=== PATIENT | female | born 1965 | race Caucasian/White ===

== ENCOUNTER 2018-01-27 07:23 | Emergency (ER) | payer BC, OTHER ==
[2018-01-27] MEDS ORDERED: Sodium Chloride 0.9% 1000 ML 1,000 ML ONE ×2 (07:43→09:14)
[2018-01-27] MEDS ORDERED: Zofran 4 MG/2 ML VIAL ONE (07:43)
[2018-01-27] MEDS ORDERED: Sodium Chloride 0.9% 1000 ML 1,000 ML IV STA ×2 (07:43→09:14)
[2018-01-27] MEDS ORDERED: Zofran 4 MG/2 ML VIAL IV ONE (07:43)
--- NOTE | 2018-01-27 07:48 | ERPHSYRPT ---
- History of Present Illness Time Seen by Provider: 01/27/18 07:42 Source: patient Exam Limitations: no limitations Patient Subjective Stated Complaint: PT states "It all started as a migraine yesterday and I have been vomiting all night and it will not stop." Triage Nursing Assessment: Pt alert and oriented X 3, skin pwd. PT ambulates with an upright steady gait, able to speak in clear full sentences. Pt in no apparent respiratory distress. Pt vomiting into emisis bag. Physician History: The patient is an obese 52-year-old female with her complaining of the worst headache of her life that began yesterday evening around 10 PM and was followed by vomiting that has lasted all night she's had some diarrhea with it. She denies abdominal pain. In addition to her headache, it hurts for her to take a breath. She describes the headache as pulsating and in the back of her head and behind her eyes. She has no past medical history of migraine headaches. Her past medical history is significant for eye pretension. Timing/Duration: yesterday, sudden, worse Severity: severe Modifying Factors: Improves With: nothing Associated Symptoms: nausea, vomiting, headaches, No abdominal pain Allergies/Adverse Reactions: morphine Allergy (Mild, Verified 04/17/14 10:25) Home Medications: Citalopram Hydrobromide [Celexa] 20 mg PO DAILY 09/12/12 [History] Lisinopril 5 mg [Zestril 5 MG] 5 mg PO DAILY 09/12/12 [History] Ferrous Sulfate [Iron Supplement] 325 mg PO DAILY 04/17/14 [History] Spironolactone 25 mg DAILY 04/17/14 [History] Hx Tetanus, Diphtheria Vaccination/Date Given: No Hx Influenza Vaccination/Date Given: No Hx Pneumococcal Vaccination/Date Given: No Immunizations Up to Date: Yes - Review of Systems Constitutional: Weakness Eyes: No Symptoms Ears, Nose, & Throat: No Symptoms Respiratory: No Cough, No Dyspnea Cardiac: Chest Pain (pain with breathing) Abdominal/Gastrointestinal: Nausea, Vomiting, Diarrhea Genitourinary Symptoms: No Dysuria Musculoskeletal: No Back Pain, No Neck Pain Skin: No Rash Neurological: Headache, No Parasthesia, No Sensory Changes Psychological: No Symptoms Endocrine: No Symptoms Hematologic/Lymphatic: No Symptoms Immunological/Allergic: No Symptoms All Other Systems: Reviewed and Negative - Past Medical History Pertinent Past Medical History: Yes Neurological History: No Pertinent History ENT History: No Pertinent History Cardiac History: Hypertension Respiratory History: Asthma, Bronchitis Endocrine Medical History: No Pertinent History Musculoskeletal History: No Pertinent History GI Medical History: No Pertinent History Psycho-Social History: Anxiety, Depression Female Reproductive Disorders: No Pertinent History Other Medical History: fsgs kidney disease - Past Surgical History Past Surgical History: Yes Gastrointestinal: Cholecystectomy Other Surgical History: KIDNEY BX. VAGINA CYST - Social History Smoking Status: Current some day smoker How long have you smoked: years Exposure to second hand smoke: Yes Drug Use: none Patient Lives Alone: No - Female History Hx Last Menstrual Period: 01/23/2018 Hx Now: No - Nursing Vital Signs Nursing Vital Signs: Initial Vital Signs Temperature 98.5 F 01/27/18 07:34 Pulse Rate 70 01/27/18 07:34 Respiratory Rate 18 01/27/18 07:34 Blood Pressure 156/85 01/27/18 07:34 O2 Sat by Pulse Oximetry 97 01/27/18 07:34 Pain Scale Pain Intensity 4 - Physical Exam General Appearance: moderate distress, obese Eye Exam: PERRL/EOMI, eyes nml inspection Ears, Nose, Throat Exam: normal ENT inspection, TMs normal, pharynx normal, moist mucous membranes Neck Exam: normal inspection, non-tender, supple, full range of motion Respiratory Exam: normal breath sounds, lungs clear, No respiratory distress Cardiovascular Exam: regular rate/rhythm, normal heart sounds, normal peripheral pulses Gastrointestinal/Abdomen Exam: soft, normal bowel sounds, No tenderness, No mass Pelvic Exam: not done Rectal Exam: not done Back Exam: normal inspection, normal range of motion, No CVA tenderness, No vertebral tenderness Extremity Exam: normal inspection, normal range of motion, pelvis stable Neurologic Exam: alert, oriented x 3, cooperative, normal mood/affect, nml cerebellar function, nml station & gait, sensation nml, No motor deficits Skin Exam: normal color, warm, dry, No rash Lymphatic Exam: No adenopathy SpO2 Interpretation: normal SpO2: 97 Oxygen Delivery: Room Air - Course EKG Interpreted by Me: RATE, Sinus Rhythm, NORMAL AXIS, NORMAL INTERVALS, NORMAL QRS, NORMAL ST-T - Radiology Exams Chest X-ray Interpretation: Interpreted by me, Negative (1V chest) Abdomen X-ray Interpretation: Interpreted by me, Negative - CT Exams Head CT Interpretation: Negative, Tele-radiologist Report (per Dr Pascal), No/ Intracranial Hemorrhag Ordered Tests: Active Orders 24 hr Category Date Time Status Clean Catch Urine Specimen STAT Care 01/27/18 07:43 Active EKG-ER Only STAT Care 01/27/18 07:52 Active IV Insertion STAT Care 01/27/18 07:43 Active HEAD WITHOUT CONTRAST [CT] Stat Exams 01/27/18 07:55 Taken OBSTR/ACUTE ABDOMEN SERIES Stat Exams 01/27/18 07:52 Taken CBC W DIFF Stat Lab 01/27/18 07:45 Completed CMP Stat Lab 01/27/18 07:45 Completed CULTURE,URINE Stat Lab 01/27/18 10:20 Received HCG QUALITATIVE,SERUM Stat Lab 01/27/18 07:45 Completed LIPASE Stat Lab 01/27/18 07:45 Completed Lactic Acid Stat Lab 01/27/18 07:43 Completed TROPONIN Q3H Lab 01/27/18 07:45 Completed TROPONIN Q3H Lab 01/27/18 11:00 Ordered TROPONIN Q3H Lab 01/27/18 14:00 Ordered TROPONIN Q3H Lab 01/27/18 17:00 Ordered TROPONIN Q3H Lab 01/27/18 20:00 Ordered UA W/RFX UR CULTURE Stat Lab 01/27/18 10:20 Completed Urine Triage Profile Stat Lab 01/27/18 10:20 Received Medication Summary Discontinued Medications Generic Name Dose Route Start Last Admin Trade Name Freq PRN Reason Stop Dose Admin Sodium Chloride 1,000 mls @ 999 mls/hr 01/27/18 07:43 01/27/18 09:22 Sodium Chloride 0.9% 1000 Ml IV 01/27/18 08:43 Infused .Q1H1M STA Infusion Sodium Chloride Confirm 01/27/18 07:43 Sodium Chloride 0.9% 1000 Ml Administered 01/27/18 07:44 Dose 1,000 mls @ ud .ROUTE .STK-MED ONE Sodium Chloride 1,000 mls @ 999 mls/hr 01/27/18 09:14 01/27/18 10:24 Sodium Chloride 0.9% 1000 Ml IV 01/27/18 10:14 Infused .Q1H1M STA Infusion Sodium Chloride Confirm 01/27/18 09:14 Sodium Chloride 0.9% 1000 Ml Administered 01/27/18 09:15 Dose 1,000 mls @ ud .ROUTE .STK-MED ONE Ondansetron HCl 4 mg 01/27/18 07:43 01/27/18 07:58 Zofran 4 Mg/2 Ml Vial IV 01/27/18 07:44 4 mg STAT ONE Administration Ondansetron HCl Confirm 01/27/18 07:43 Zofran 4 Mg/2 Ml Vial Administered 01/27/18 07:44 Dose 4 mg .ROUTE .STK-MED ONE Promethazine HCl 25 mg 01/27/18 07:52 01/27/18 08:00 Phenergan 25 Mg Inj IV 01/27/18 07:53 25 mg STAT ONE Administration Promethazine HCl Confirm 01/27/18 07:59 Phenergan 25 Mg Inj Administered 01/27/18 08:00 Dose 25 mg .ROUTE .ST-[facility] ONE Lab/Rad Data: Laboratory Result Diagrams 01/27/18 07:45 01/27/18 07:45 Laboratory Results 01/27/18 01/27/18 01/27/18 Range/Units 10:20 07:45 07:45 WBC (4.0-10.5) K/mm3 RBC (4.1-5.4) M/mm3 Hgb (12.0-16.0) gm/dl Hct (35-47) % MCV (78-100) fl MCH (26-32) pg MCHC (32-36) g/dl RDW (11.5-14.0) % Plt Count (150-450) K/mm3 MPV (6-9.5) fl Gran % (36.0-66.0) % Eos # (Auto) (0-0.5) Absolute Lymphs (auto) (1.0-4.6) Absolute Monos (auto) (0.0-1.3) Lymphocytes % (24.0-44.0) % Monocytes % (0.0-12.0) % Eosinophils % (0.00-5.0) % Basophils % (0.0-0.4) % Absolute Granulocytes (1.4-6.9) Basophils # (0-0.4) Sodium (137-145) mmol/L Potassium (3.5-5.1) mmol/L Chloride (98-107) mmol/L Carbon Dioxide (22-30) mmol/L Anion Gap (5-15) MEQ/L BUN (7-17) mg/dL Creatinine (0.52-1.04) mg/dL Estimated GFR ML/MIN Glucose (74-106) mg/dL Lactic Acid (0.4-2.0) Calcium (8.4-10.2) mg/dL Total Bilirubin (0.2-1.3) mg/dL AST (14-36) U/L ALT (0-35) U/L Alkaline Phosphatase (38-126) U/L Troponin I < 0.012 (0.000-0.034) ng/mL Serum Total Protein (6.3-8.2) g/dL Albumin (3.5-5.0) g/dL Lipase (23-300) U/L Serum , Qual NEGATIVE (Negative) Urine Color STRAW (YELLOW) Urine Appearance CLEAR (CLEAR) Urine pH 7.0 (5-6) Ur Specific [place] 1.010 (1.005-1.025) Urine Protein 100 (Negative) Urine Ketones NEGATIVE (NEGATIVE) Urine Blood SMALL (0-5) [place]/ul Urine Nitrite NEGATIVE (NEGATIVE) Urine Bilirubin NEGATIVE (NEGATIVE) Urine Urobilinogen NEGATIVE (0-1) mg/dL Ur Leukocyte Esterase NEGATIVE (NEGATIVE) Urine WBC (Auto) 3-5 (0-5) /HPF Urine RBC (Auto) 0-2 (0-2) /HPF U Epithel Cells (Auto) NONE (FEW) /HPF Urine Bacteria (Auto) RARE (NEGATIVE) /HPF Urine Mucus (Auto) SLIGHT (NEGATIVE) /HPF Urine Culture Reflexed YES (NO) Urine Glucose NEGATIVE (NEGATIVE) mg/dL 01/27/18 01/27/18 01/27/18 Range/Units 07:45 07:45 07:43 WBC 7.6 (4.0-10.5) K/mm3 RBC 3.97 L (4.1-5.4) M/mm3 Hgb 12.0 (12.0-16.0) gm/dl Hct 37.1 (35-47) % MCV 93.5 (78-100) fl MCH 30.2 (26-32) pg MCHC 32.3 (32-36) g/dl RDW 13.9 (11.5-14.0) % Plt Count 188 (150-450) K/mm3 MPV 11.6 H (6-9.5) fl Gran % 76.5 H (36.0-66.0) % Eos # (Auto) 0.11 (0-0.5) Absolute Lymphs (auto) 1.14 (1.0-4.6) Absolute Monos (auto) 0.48 (0.0-1.3) Lymphocytes % 15.0 L (24.0-44.0) % Monocytes % 6.3 (0.0-12.0) % Eosinophils % 1.5 (0.00-5.0) % Basophils % 0.7 (0.0-0.4) % Absolute Granulocytes 5.80 (1.4-6.9) Basophils # 0.05 (0-0.4) Sodium 140 (137-145) mmol/L Potassium 4.9 (3.5-5.1) mmol/L Chloride 104 (98-107) mmol/L Carbon Dioxide 28 (22-30) mmol/L Anion Gap 12.3 (5-15) MEQ/L BUN 30 H (7-17) mg/dL Creatinine 1.38 H (0.52-1.04) mg/dL Estimated GFR 42.5 ML/MIN Glucose 118 H (74-106) mg/dL Lactic Acid 1.2 (0.4-2.0) Calcium 10.1 (8.4-10.2) mg/dL Total Bilirubin 0.20 (0.2-1.3) mg/dL AST 26 (14-36) U/L ALT 14 (0-35) U/L Alkaline Phosphatase 71 (38-126) U/L Troponin I (0.000-0.034) ng/mL Serum Total Protein 7.5 (6.3-8.2) g/dL Albumin 4.3 (3.5-5.0) g/dL Lipase 313 H (23-300) U/L Serum , Qual (Negative) Urine Color (YELLOW) Urine Appearance (CLEAR) Urine pH (5-6) Ur Specific [place] (1.005-1.025) Urine Protein (Negative) Urine Ketones (NEGATIVE) Urine Blood (0-5) [place]/ul Urine Nitrite (NEGATIVE) Urine Bilirubin (NEGATIVE) Urine Urobilinogen (0-1) mg/dL Ur Leukocyte Esterase (NEGATIVE) Urine WBC (Auto) (0-5) /HPF Urine RBC (Auto) (0-2) /HPF U Epithel Cells (Auto) (FEW) /HPF Urine Bacteria (Auto) (NEGATIVE) /HPF Urine Mucus (Auto) (NEGATIVE) /HPF Urine Culture Reflexed (NO) Urine Glucose (NEGATIVE) mg/dL - Progress Progress: improved Progress Note: 01/27/18 11:05 given zofran 4 mg, phenergan 25 mg, and 2L fluids IV. Counseled pt/family regarding: lab results, diagnosis, rad results - Departure Time of Disposition: 11:06 Departure Disposition: Home Clinical Impression: Vomiting, Headache Condition: Stable Critical Care Time: No Referrals: GUILLERMO MENDOZA [Primary Care Provider] - Additional Instructions: You had severe vomiting and a headache. The head CT, chest x-ray, and abdominal x-ray were all negative. You were given Zofran 4 mg and Phenergan 25 mg by IV for nausea and vomiting. You were given 2 L of fluids by IV. Take Zofran 4 mg ODT every 6 hours as needed. Take Phenergan 25 mg by suppository every 8 hours as needed. Begin your diet with a full liquid diet and advance as tolerated. Follow-up with your primary medical doctor as needed. Prescriptions: Ondansetron ODT 4 MG [Zofran Odt 4 mg] 1 tab PO Q6H PRN PRN #10 tab.rapdis PRN Reason: Nausea/Vomiting Promethazine HCl 25 mg Supp [Phenergan 25 mg Supp] 25 mg CO Q8H PRN PRN # 12 supp.rect PRN Reason: Nausea/Vomiting
[2018-01-27] MEDS ORDERED: Phenergan 25 MG INJ IV ONE (07:52)
[2018-01-27] MEDS ORDERED: Phenergan 25 MG INJ ONE (07:59)
[2018-01-27 08:13] LABS: BASOPHIL % 0.7 % (0.0-0.4); Basophil (Absolute #) 0.05 (0-0.4); Eosinophil % 1.5 % (0.00-5.0); Eosinophil (Absolute #) 0.11 (0-0.5); Granulocytes % 76.5 % (36.0-66.0); Hematocrit 37.1 % (35-47); Lymphocyte (Absolute #) 1.14 (1.0-4.6); Mean Cell Volume 93.5 fl (78-100); Mean Corpuscular Hemoglobin 30.2 pg (26-32); Mean Corpuscular Hgb Concent. 32.3 g/dl (32-36); Mean Platelet Volume 11.6 fl (6-9.5); Monocyte (Absolute #) 0.48 (0.0-1.3); Monocytes % 6.3 % (0.0-12.0); Platelet Count 188 K/mm3 (150-450); Red Blood Count 3.97 M/mm3 (4.1-5.4); Red Cell Distribution Width 13.9 % (11.5-14.0); White Blood Count 7.6 K/mm3 (4.0-10.5)
[2018-01-27 08:28] LABS: ALBUMIN 4.3 g/dL (3.5-5.0); ANION GAP 12.3 MEQ/L (5-15); BILIRUBIN,TOTAL 0.2 mg/dL (0.2-1.3); Calcium 10.1 mg/dL (8.4-10.2); Creatinine 1 1.38 mg/dL (0.52-1.04); Potassium 4.9 mmol/L (3.5-5.1); Total Protein 7.5 g/dL (6.3-8.2)
[2018-01-27 10:41] LABS: Appearance CLEAR (CLEAR); Bilirubin NEGATIVE (NEGATIVE); Blood SMALL Ery/ul (0-5); Glucose NEGATIVE (NEGATIVE); Ketones NEGATIVE (NEGATIVE); Leukocyte Esterase NEGATIVE (NEGATIVE); Nitrite NEGATIVE (NEGATIVE); Protein,Urine Dip 100 (Negative); Urobilinogen NEGATIVE mg/dL (0-1)
[2018-01-27 10:54] LABS: Amphetamine,Urine NEGATIVE (NEGATIVE); Barbiturate,Urine NEGATIVE (NEGATIVE); Benzodiazepine,Urine NEGATIVE (NEGATIVE); Cocaine,Urine NEGATIVE (NEGATIVE); Methadone,Urine NEGATIVE (NEGATIVE); Opiate,Urine NEGATIVE (NEGATIVE); PCP,Urine NEGATIVE (NEGATIVE); THC,Urine NEGATIVE (NEGATIVE)
[2018-01-27 11:14] VITALS: BP 112/64; PULSE 70; O2SAT 98
--- NOTE | 2018-01-27 15:24 | XRAY ---
Indication: Headache, nausea, and vomiting. Comparison: None 2 views of the abdomen demonstrates nonspecific nonobstructed bowel gas pattern with cholecystectomy clips. Solid organs unremarkable. Osseous structures intact with mild lower lumbar degenerative changes. Single PA chest demonstrates normal heart, lungs, and bony thorax with incidental right base calcified granuloma. Impression: Negative abdomen. Nonacute 1 view chest with evidence for old granulomatous disease.
--- NOTE | 2018-01-27 15:29 | XRAY ---
Indication: Headache, nausea, and vomiting. Multiple contiguous axial images obtained through the head without contrast. Comparison: None Images through the base the brain slightly degraded by motion artifact. No acute intracranial hemorrhage, abnormal extra-axial fluid collection, or mass effect. Fourth ventricle is midline without hydrocephalus. Nash-white matter differentiation preserved. Bony calvarium intact. There is complete opacification of both mastoid air cells and partial opacification of the right middle ear presumed inflammatory. Impression: Motion artifact. No gross acute intracranial abnormalities. Opacification of both mastoid air cells and right middle ear presumed inflammatory. Comment: Preliminary interpretation was made by [facility] who does not report right middle ear and mastoid air cell opacifications, not critical findings. CTDI 66.59
== END 2018-01-27 11:26 | disposition home or self-care (01) ==
LOC: ED 07:23
DX: R51 Headache (principal); R11.2 Nausea with vomiting, unspecified; Z79.899 Other long term (current) drug therapy
CPT/HCPCS: 36000; 36415; 70450; 74022; 80053; 80307; 81001; 81025; 83605; 83690; 84484; 85025; 87077; 87086; 87186; 93005; 96360; 96361; 96365; 96374; 96375; 99285; J2405; J2550

== ENCOUNTER 2018-12-20 19:31 | Emergency (ER) | payer OTHER ==
--- NOTE | 2018-12-20 20:01 | ERPHSYRPT ---
- History of Present Illness Time Seen by Provider: 12/20/18 19:45 Historian: patient, family Exam Limitations: no limitations Patient Subjective Stated Complaint: " I feel like my abd is tearing from left side, my stomach feels like I have a knot in it, my gut is distended and I have been constipated. This is been going on for about a month but worse in the past week." Triage Nursing Assessment: Pt presents to ER, anxious and appears in pain, pt walks unsteady to Room 5 where pt was placed in gown and on bed. Pt states pain is diffused mid and lower abd. states worse when laying flat. Bowel sounds are present. Lung sounds have wheezes during exhalation, pt states that is normal since she is a smoker. Pt doesn't appear short of breath. Pt denies n/v/d, states is constipated though. Pt is alert and oriented x 3, communicates in clear full sentences. Physician History: 53 y/o obese white female presents with abdominal pain and constipation for a month. sx worse. pt has a colonoscopy scheduled for december 28. pt has intermittent nausea but no vomiting or diarrhea. pt denies cp, denies soa. pt has never had this before. Timing/Duration: week(s) (several ), intermittent, worse Activities at Onset: none Quality: cramping Abdominal Pain Onset Location: LUQ, LLQ, suprapubic Pain Radiation: no radiation Severity of Pain-Max: moderate Severity of Pain-Current: moderate Modifying Factors: Improves With: nothing Associated Symptoms: other (constipation) Previous symptoms: no prior history Allergies/Adverse Reactions: morphine Allergy (Mild, Verified 04/17/14 10:25) Hx Tetanus, Diphtheria Vaccination/Date Given: No Hx Influenza Vaccination/Date Given: No Hx Pneumococcal Vaccination/Date Given: No Immunizations Up to Date: Yes - Review of Systems Constitutional: No Symptoms Eyes: No Symptoms Ears, Nose, & Throat: No Symptoms Respiratory: No Symptoms Cardiac: No Symptoms Abdominal/Gastrointestinal: Abdominal Pain, Nausea, Vomiting, Constipation Genitourinary Symptoms: No Symptoms Musculoskeletal: No Symptoms Skin: No Symptoms Neurological: No Symptoms Psychological: No Symptoms Endocrine: No Symptoms Hematologic/Lymphatic: No Symptoms Immunological/Allergic: No Symptoms All Other Systems: Reviewed and Negative - Past Medical History Pertinent Past Medical History: Yes Neurological History: No Pertinent History ENT History: No Pertinent History Cardiac History: Hypertension Respiratory History: Asthma, Bronchitis Endocrine Medical History: No Pertinent History Musculoskeletal History: No Pertinent History GI Medical History: No Pertinent History Psycho-Social History: Anxiety, Depression Female Reproductive Disorders: No Pertinent History Other Medical History: fsgs kidney disease - Past Surgical History Past Surgical History: Yes Gastrointestinal: Cholecystectomy Other Surgical History: KIDNEY BX. VAGINA CYST - Social History Smoking Status: Current every day smoker How long have you smoked: years Exposure to second hand smoke: No Drug Use: none Patient Lives Alone: No - Female History Hx Last Menstrual Period: 1 year ago, spotting 2 days ago - Nursing Vital Signs Nursing Vital Signs: Initial Vital Signs Temperature 98.2 F 12/20/18 19:42 Pulse Rate 98 H 12/20/18 19:42 Respiratory Rate 22 12/20/18 19:42 Blood Pressure 166/100 12/20/18 19:42 O2 Sat by Pulse Oximetry 98 12/20/18 19:42 Pain Scale Pain Intensity 7 - Physical Exam General Appearance: mild distress, alert, anxiety Eye Exam: PERRL/EOMI, eyes nml inspection Ears, Nose, Throat Exam: normal ENT inspection, moist mucous membranes Neck Exam: normal inspection, non-tender, supple, full range of motion Respiratory Exam: normal breath sounds, lungs clear, airway intact, No chest tenderness, No respiratory distress Cardiovascular Exam: regular rate/rhythm, normal heart sounds, normal peripheral pulses Gastrointestinal/Abdomen Exam: soft, normal bowel sounds, tenderness (mild diffuse), No guarding, No rebound Pelvic Exam: not done Rectal Exam: not done Back Exam: normal inspection, normal range of motion, No CVA tenderness, No vertebral tenderness Extremity Exam: normal inspection, normal range of motion, pelvis stable Neurologic Exam: alert, oriented x 3, cooperative, sawmill hand II-XII nml as tested, nml cerebellar function, nml station & gait Skin Exam: normal color, warm, dry Lymphatic Exam: No adenopathy SpO2 Interpretation: normal SpO2: 98 O2 Delivery: Room Air - Course Nursing assessment & vital signs reviewed: Yes Ordered Tests: Active Orders 24 hr Category Date Time Status IV Insertion STAT Care 12/20/18 20:01 Active ABDOMEN AND PELVIS W/0 CONTRAS [CT] Stat Exams 12/20/18 20:01 Taken AMYLASE Stat Lab 12/20/18 20:10 Completed CBC W DIFF Stat Lab 12/20/18 20:10 Completed CMP Stat Lab 12/20/18 20:10 Completed LIPASE Stat Lab 12/20/18 20:10 Completed Lactic Acid Stat Lab 12/20/18 21:10 Completed UA W/RFX UR CULTURE Stat Lab 12/20/18 20:14 Completed Lab/Rad Data: Laboratory Result Diagrams 12/20/18 20:10 12/20/18 20:10 Laboratory Results 12/20/18 12/20/18 12/20/18 Range/Units 21:10 20:14 20:10 WBC (4.0-10.5) K/mm3 RBC (4.1-5.4) M/mm3 Hgb (12.0-16.0) gm/dl Hct (35-47) % MCV (78-100) fl MCH (26-32) pg MCHC (32-36) g/dl RDW (11.5-14.0) % Plt Count (150-450) K/mm3 MPV (6-9.5) fl Gran % (36.0-66.0) % Eos # (Auto) (0-0.5) Absolute Lymphs (auto) (1.0-4.6) Absolute Monos (auto) (0.0-1.3) Lymphocytes % (24.0-44.0) % Monocytes % (0.0-12.0) % Eosinophils % (0.00-5.0) % Basophils % (0.0-0.4) % Absolute Granulocytes (1.4-6.9) Basophils # (0-0.4) Sodium 143 (137-145) mmol/L Potassium 3.8 (3.5-5.1) mmol/L Chloride 106 (98-107) mmol/L Carbon Dioxide 27 (22-30) mmol/L Anion Gap 14.3 (5-15) MEQ/L BUN 27 H (7-17) mg/dL Creatinine 1.63 H (0.52-1.04) mg/dL Estimated GFR 34.9 ML/MIN Glucose 102 (74-106) mg/dL Lactic Acid 1.0 (0.4-2.0) Calcium 9.4 (8.4-10.2) mg/dL Total Bilirubin 0.20 (0.2-1.3) mg/dL AST 22 (14-36) U/L ALT 11 (0-35) U/L Alkaline Phosphatase 100 (38-126) U/L Serum Total Protein 7.8 (6.3-8.2) g/dL Albumin 3.9 (3.5-5.0) g/dL Amylase 96 (30-110) U/L Lipase 117 (23-300) U/L Urine Color YELLOW (YELLOW) Urine Appearance CLEAR (CLEAR) Urine pH 6.0 (5-6) Ur Specific [place] 1.009 (1.005-1.025) Urine Protein 100 (Negative) Urine Ketones NEGATIVE (NEGATIVE) Urine Blood MODERATE (0-5) [place]/ul Urine Nitrite NEGATIVE (NEGATIVE) Urine Bilirubin NEGATIVE (NEGATIVE) Urine Urobilinogen NEGATIVE (0-1) mg/dL Ur Leukocyte Esterase NEGATIVE (NEGATIVE) Urine WBC (Auto) 3-5 (0-5) /HPF Urine RBC (Auto) 3-5 (0-2) /HPF U Epithel Cells (Auto) RARE (FEW) /HPF Urine Bacteria (Auto) NONE (NEGATIVE) /HPF Urine Mucus (Auto) SLIGHT (NEGATIVE) /HPF Urine Culture Reflexed NO (NO) Urine Glucose NEGATIVE (NEGATIVE) mg/dL 12/20/18 Range/Units 20:10 WBC 8.8 (4.0-10.5) K/mm3 RBC 3.87 L (4.1-5.4) M/mm3 Hgb 11.6 L (12.0-16.0) gm/dl Hct 35.3 (35-47) % MCV 91.2 (78-100) fl MCH 29.9 (26-32) pg MCHC 32.9 (32-36) g/dl RDW 13.6 (11.5-14.0) % Plt Count 286 (150-450) K/mm3 MPV 10.7 H (6-9.5) fl Gran % 70.7 H (36.0-66.0) % Eos # (Auto) 0.21 (0-0.5) Absolute Lymphs (auto) 1.64 (1.0-4.6) Absolute Monos (auto) 0.67 (0.0-1.3) Lymphocytes % 18.6 L (24.0-44.0) % Monocytes % 7.6 (0.0-12.0) % Eosinophils % 2.4 (0.00-5.0) % Basophils % 0.7 (0.0-0.4) % Absolute Granulocytes 6.23 (1.4-6.9) Basophils # 0.06 (0-0.4) Sodium (137-145) mmol/L Potassium (3.5-5.1) mmol/L Chloride (98-107) mmol/L Carbon Dioxide (22-30) mmol/L Anion Gap (5-15) MEQ/L BUN (7-17) mg/dL Creatinine (0.52-1.04) mg/dL Estimated GFR ML/MIN Glucose (74-106) mg/dL Lactic Acid (0.4-2.0) Calcium (8.4-10.2) mg/dL Total Bilirubin (0.2-1.3) mg/dL AST (14-36) U/L ALT (0-35) U/L Alkaline Phosphatase (38-126) U/L Serum Total Protein (6.3-8.2) g/dL Albumin (3.5-5.0) g/dL Amylase (30-110) U/L Lipase (23-300) U/L Urine Color (YELLOW) Urine Appearance (CLEAR) Urine pH (5-6) Ur Specific [place] (1.005-1.025) Urine Protein (Negative) Urine Ketones (NEGATIVE) Urine Blood (0-5) [place]/ul Urine Nitrite (NEGATIVE) Urine Bilirubin (NEGATIVE) Urine Urobilinogen (0-1) mg/dL Ur Leukocyte Esterase (NEGATIVE) Urine WBC (Auto) (0-5) /HPF Urine RBC (Auto) (0-2) /HPF U Epithel Cells (Auto) (FEW) /HPF Urine Bacteria (Auto) (NEGATIVE) /HPF Urine Mucus (Auto) (NEGATIVE) /HPF Urine Culture Reflexed (NO) Urine Glucose (NEGATIVE) mg/dL - Progress Progress: unchanged Progress Note: 12/20/18 21:50 d/w pt the ct abd/pelvis-left adnexal mass, adenopathy vs ovarian tumor. retroperitoneal adenopathy. mesenteric "caking". pericardial fat soft tissue tumors. hepatic granulomas vs malignancy. small amt of pelvic free fluid. 12/20/18 21:55 pt states she does not require any pain medication at this time. Counseled pt/family regarding: lab results, diagnosis, need for follow-up, rad results - Departure Departure Disposition: Home Clinical Impression: Abdominal pain, Intraabdominal tumor, Intra-abdominal lymphadenopathy Condition: Stable Critical Care Time: No Referrals: GUILLERMO MENDOZA [Primary Care Provider] - Additional Instructions: follow up with Dr. Haney office tomorrow for further management.
[2018-12-20 20:18] LABS: Absolute Neutrophil Ct (ANC) 6.23 (1.4-6.9); BASOPHIL % 0.7 % (0.0-0.4); Basophil (Absolute #) 0.06 (0-0.4); Eosinophil % 2.4 % (0.00-5.0); Eosinophil (Absolute #) 0.21 (0-0.5); Hematocrit 35.3 % (35-47); Hemoglobin 11.6 gm/dl (12.0-16.0); Lymphocyte (Absolute #) 1.64 (1.0-4.6); Lymphocytes % 18.6 % (24.0-44.0); Mean Cell Volume 91.2 fl (78-100); Mean Corpuscular Hgb Concent. 32.9 g/dl (32-36); Mean Platelet Volume 10.7 fl (6-9.5); Monocyte (Absolute #) 0.67 (0.0-1.3); Monocytes % 7.6 % (0.0-12.0); Neutrophil % 70.7 % (36.0-66.0); Platelet Count 286 K/mm3 (150-450); Red Blood Count 3.87 M/mm3 (4.1-5.4); Red Cell Distribution Width 13.6 % (11.5-14.0); White Blood Count 8.8 K/mm3 (4.0-10.5)
[2018-12-20 20:19] LABS: Mean Corpuscular Hemoglobin 29.9 pg (26-32)
[2018-12-20 20:21] LABS: Appearance CLEAR (CLEAR); Bilirubin NEGATIVE (NEGATIVE); Blood MODERATE Ery/ul (0-5); Epithelial Cells RARE /HPF (FEW); Glucose NEGATIVE (NEGATIVE); Ketones NEGATIVE (NEGATIVE); Leukocyte Esterase NEGATIVE (NEGATIVE); Mucus SLIGHT /HPF (NEGATIVE); Nitrite NEGATIVE (NEGATIVE); Protein,Urine Dip 100 (Negative); Specific Gravity 1.009 (1.005-1.025); Urobilinogen NEGATIVE mg/dL (0-1)
[2018-12-20 20:31] LABS: ALBUMIN 3.9 g/dL (3.5-5.0); ANION GAP 14.3 MEQ/L (5-15); BILIRUBIN,TOTAL 0.2 mg/dL (0.2-1.3); Calcium 9.4 mg/dL (8.4-10.2); Creatinine 1 1.63 mg/dL (0.52-1.04); Potassium 3.8 mmol/L (3.5-5.1); Total Protein 7.8 g/dL (6.3-8.2)
[2018-12-20 22:06] VITALS: PULSE 81
[2018-12-20 22:51] VITALS: BP 128/78; O2SAT 97
--- NOTE | 2018-12-21 09:16 | XRAY ---
Indication: Abdomen pain and constipation. Multiple contiguous axial images obtained through the abdomen and pelvis without contrast as ordered. Comparison: None Lung bases demonstrates right lower lobe calcified granulomas. No infiltrate or effusion. Heart is not enlarged. Small hiatal hernia. Stomach is distended with food/fluid. Noncontrasted stomach and bowel loops appear nonobstructed. Normal air-filled appendix. Minimal scattered colonic diverticulosis. Left adnexa demonstrates a 3.7 x 5.7 cm noncalcified soft tissue mass either lymphadenopathy versus or ovarian mass. Abdomen and pelvis demonstrates scattered anterior omental caking with small pelvic free fluid worrisome for metastasis typically from ovarian, gastric, or colon cancer. The base of the lungs demonstrates similar smaller soft tissue opacities in the epicardiac fat pad bilaterally, largest 1.2 x 1.6 cm. There are also matted retroperitoneal lymphadenopathy, largest 3 x 4 cm just inferior to the left renal vessels. Both kidneys demonstrate cortical scarring with faint peripheral calcifications. Right mid kidney demonstrates a 2.2 cm round hypodensity, possible cyst. No hydronephrosis or hydroureter. Left lobe of the liver near the dome of the diaphragm demonstrates small 2.5 cm focus of clustered calcifications either calcified granuloma versus primary/metastatic malignancy. Previous cholecystectomy. Remaining pancreas, spleen, adrenal glands, kidneys, ureters, bladder, uterus, and aorta appear unremarkable for noncontrast exam. Osseous structures intact with mild degenerative changes of the lower thoracic spine. No suspicious bony lesions. Impression: 1. Left adnexa noncalcified soft tissue mass either lymphadenopathy versus ovarian mass. 2. Omental caking with small pelvic free fluid worrisome for metastasis. Similar soft tissue opacities around the epicardiac fat pad. 3. Retroperitoneal lymphadenopathy also favors metastasis. 4. Small focus of calcifications in the left lobe of the liver either calcified granulomas versus primary/metastatic malignancy. 5. Bilateral renal cortical scarring with faint calcifications. Right renal 2.2 cm round hypodensity probable cyst. 6. Incidental small hiatal hernia, pulmonary calcified granulomas, and colonic diverticulosis. CT DI 23.69
== END 2018-12-20 22:42 | disposition home or self-care (01) ==
LOC: ED 19:31
DX: R10.12 Left upper quadrant pain (principal); R10.32 Left lower quadrant pain; D49.89 Neoplasm of unspecified behavior of other specified sites; R59.1 Generalized enlarged lymph nodes
CPT/HCPCS: 36000; 36415; 74176; 80053; 81001; 82150; 83605; 83690; 85025; 99284

== ENCOUNTER → 2018-12-25 | Day surgery (SDC) | payer OTHER ==
[~2018-12-25] MED LIST: DIPRIVAN 200 MG/20 ML IV ONE; Ketamine HCl 50 MG/ML ONE; Lactated Ringers 1,000 ML IV SCH
[2018-12-25 10:48] VITALS: O2SAT 99
[2018-12-25 10:50] VITALS: BP 131/70; PULSE 84
--- NOTE | 2018-12-25 10:56 | OP ---
SURGERY DATE/TIME: 12/25/2018 0655 PREOPERATIVE DIAGNOSIS: Abnormal CT scan with lesion in the liver which appeared to be metastatic and noted some possible left adnexal mass. POSTOPERATIVE DIAGNOSIS: PROCEDURES: 1) Esophagogastroduodenoscopy. 2) Colonoscopy. SURGEON: Dr. Miranda. ANESTHESIA: MAC. Medications were given by the anesthesia department. BRIEF HISTORY: The patient has had ultrasound which was negative. The patient was now thought to need endoscopic evaluation with the differential including possible malignancies from stomach, colon or ovarian in origin. The patient was appraised of the risks of the procedure including the risk of perforation, phlebitis, untoward reaction to medication, bleeding and missed lesions. The patient verbalized her understanding and desired to have the procedure performed. DESCRIPTION OF PROCEDURE: The patient was given the medications by the anesthesia department. She had continuous pulse oximetry, ECG monitoring, intermittent blood pressure monitoring and tidal CO2 monitoring during the examination. She was placed in the left lateral decubitus position. A bite block was placed and the flexible Olympus gastroscope was used to intubate the oropharynx. The esophagus was normal throughout its length to the gastroesophageal junction where there appeared to be a hiatal hernia. The scope is introduced in the stomach where normal gastric rugal folds were seen and these distended nicely with insufflation of air. The scope was passed along the greater curvature of the stomach to the antrum. The pylorus encountered and intubated. The duodenum inspected and found to be normal. The scope is then withdrawn towards the stomach. Again, a retroflex view revealed the hiatal hernia which was previously mentioned. The scope was then redirected towards the gastric antrum and with careful inspection upon withdrawal, no mucosal lesions were encountered. The scope was removed from the patient. Next, a digital rectal examination was performed and revealed what appeared to be a retroverted uterus and the cervix which were firm. No other masses were felt. The flexible Olympus pediatric colonoscope was used to intubate the rectum. A view of the colon was developed sequentially to the cecum. Upon insertion and withdrawal, including a retroflex view in the rectum, no mucosal lesions were encountered. The scope was removed from the patient who tolerated the procedure well and was sent back to OP recovery in good condition. The prep was noted to be good.
== END | disposition home or self-care (01) ==
LOC: SDC 05:44
PROVIDERS: ATTEND Family Medicine
DX: R10.32 Left lower quadrant pain (principal); R93.5 Abnormal findings on diagnostic imaging of other abdominal regions, including retroperitoneum; K76.9 Liver disease, unspecified; K44.9 Diaphragmatic hernia without obstruction or gangrene
CPT/HCPCS: J2704

== ENCOUNTER 2019-05-27 17:10 | Emergency (ER) | payer OTHER ==
[2019-05-27] MEDS ORDERED: TORAdol 30 mg Injection IV ONE (17:25)
[2019-05-27] MEDS ORDERED: Zofran 4 MG/2 ML VIAL IV ONE (17:25)
[2019-05-27] MEDS ORDERED: Sodium Chloride 0.9% 1000 ML 1,000 ML IV STA ×2 (17:25)
--- NOTE | 2019-05-27 17:30 | ERPHSYRPT ---
- History of Present Illness Time Seen by Provider: 05/27/19 17:30 Historian: patient Exam Limitations: no limitations Physician History: Is a 53-year-old female who presents with a complaint of diarrhea since yesterday. She is under treatment with Keytruda for ovarian cancer. This is her second round of chemo the first had no effect on the process. Denies any fever or chills she has had some night sweats she has had some nausea she has had some vomiting Timing/Duration: yesterday Activities at Onset: none Abdominal Pain Onset Location: generalized abdomen Pain Radiation: flank Severity of Pain-Max: moderate Severity of Pain-Current: moderate Modifying Factors: Improves With: nothing, defecating Associated Symptoms: diaphoresis, nausea, vomiting Allergies/Adverse Reactions: morphine Allergy (Mild, Verified 12/25/18 06:43) Home Medications: Citalopram Hydrobromide [Citalopram HBr] 10 mg PO DAILY 05/27/19 [History] Fentanyl 50Mcg Patch [Duragesic 50MCG Patch] 50 mcg TOP Q72H 05/27/19 [ History] Melatonin/Pyridoxine HCl (B6) [Melatonin 3 mg Tablet] 2 tab PO HS PRN 05/27/19 [ History] Ondansetron HCl [Zofran] 4 mg SUBMUCOSAL Q6H PRN 05/27/19 [History] Oxycodone HCl [Roxicodone] 15 mg PO Q4H 05/27/19 [History] Pantoprazole 20 mg [Protonix 20MG Tablet] 20 mg PO DAILY 05/27/19 [History ] Sennosides [Senna] 1 tab PO HS 05/27/19 [History] Hx Tetanus, Diphtheria Vaccination/Date Given: No Hx Influenza Vaccination/Date Given: No Hx Pneumococcal Vaccination/Date Given: No Travel Risk - International Travel Have you traveled outside of the country in past 3 weeks: No Have you or anyone close to you been diagnosed with or: No Do your reside in a community with a known COVID-19 case?: No - Coronavirus Screening Has patient experienced Coronavirus symptoms: No - Review of Systems Constitutional: No Fever, No Chills Eyes: No Symptoms Ears, Nose, & Throat: No Symptoms Respiratory: No Cough, No Dyspnea Cardiac: No Chest Pain, No Edema, No Syncope Abdominal/Gastrointestinal: Abdominal Pain, Nausea, Vomiting, Diarrhea Genitourinary Symptoms: No Dysuria Musculoskeletal: No Back Pain, No Neck Pain Skin: No Rash Neurological: No Dizziness, No Focal Weakness, No Sensory Changes Psychological: No Symptoms Endocrine: No Symptoms Hematologic/Lymphatic: Anemia Immunological/Allergic: No Symptoms All Other Systems: Reviewed and Negative - Past Medical History Pertinent Past Medical History: Yes Neurological History: No Pertinent History ENT History: No Pertinent History Cardiac History: Hypertension Respiratory History: Asthma, Bronchitis Endocrine Medical History: No Pertinent History Musculoskeletal History: No Pertinent History GI Medical History: No Pertinent History Psycho-Social History: Anxiety, Depression Female Reproductive Disorders: No Pertinent History Other Medical History: fsgs kidney disease - Past Surgical History Past Surgical History: Yes Gastrointestinal: Cholecystectomy Other Surgical History: KIDNEY BX. VAGINA CYST - Social History Smoking Status: Current every day smoker How long have you smoked: years Exposure to second hand smoke: No Drug Use: none Patient Lives Alone: No - Nursing Vital Signs Nursing Vital Signs: Initial Vital Signs Pulse Rate 78 05/27/19 17:17 Respiratory Rate 15 05/27/19 17:17 Blood Pressure 123/66 05/27/19 17:17 O2 Sat by Pulse Oximetry 100 05/27/19 17:17 Pain Scale Pain Intensity 7 - Physical Exam General Appearance: mild distress, alert Eye Exam: PERRL/EOMI, eyes nml inspection Ears, Nose, Throat Exam: normal ENT inspection, pharynx normal, moist mucous membranes Neck Exam: normal inspection, non-tender, supple, full range of motion Respiratory Exam: normal breath sounds, lungs clear, No respiratory distress Cardiovascular Exam: regular rate/rhythm, normal heart sounds Gastrointestinal/Abdomen Exam: soft, No tenderness, No mass Back Exam: normal inspection, normal range of motion, No CVA tenderness, No vertebral tenderness Extremity Exam: normal inspection, normal range of motion, pelvis stable Neurologic Exam: alert, oriented x 3, cooperative, normal mood/affect, nml cerebellar function, sensation nml, No motor deficits Skin Exam: normal color, warm, dry SpO2: 100 - Course Nursing assessment & vital signs reviewed: Yes - CT Exams Abdomen/Pelvis CT Interpretation: Other (CT scan showed worsening of the mets some new left hydronephrosis) Ordered Tests: Active Orders 24 hr Category Date Time Status ABDOMEN AND PELVIS W/0 CONTRAS [CT] Stat Exams 05/27/19 17:26 Taken CHEST 1 VIEW (PORTABLE) Stat Exams 05/27/19 17:26 Taken AMYLASE Stat Lab 05/27/19 17:55 Completed BLOOD CULTURE Stat Lab 05/27/19 18:10 Received CBC W DIFF Stat Lab 05/27/19 17:55 Completed CMP Stat Lab 05/27/19 17:55 Completed LIPASE Stat Lab 05/27/19 17:55 Completed Lactic Acid Stat Lab 05/27/19 17:25 Completed UA W/RFX UR CULTURE Stat Lab 05/27/19 17:26 Uncollected Medication Summary Discontinued Medications Generic Name Dose Route Start Last Admin Trade Name Freq PRN Reason Stop Dose Admin Sodium Chloride 1,000 mls @ 999 mls/hr 05/27/19 17:25 05/27/19 19:23 Sodium Chloride 0.9% 1000 Ml IV 05/27/19 18:25 Infused .Q1H1M STA Infusion Sodium Chloride 1,000 mls @ 999 mls/hr 05/27/19 17:25 05/27/19 19:19 Sodium Chloride 0.9% 1000 Ml IV 05/27/19 18:25 999 mls/hr .Q1H1M STA Administration Sodium Chloride Confirm 05/27/19 17:39 Sodium Chloride 0.9% 1000 Ml Administered 05/27/19 17:40 Dose 2,000 mls @ ud .ROUTE .STK-MED ONE Ketorolac Tromethamine 30 mg 05/27/19 17:25 05/27/19 18:08 Toradol 30 Mg Injection IV 05/27/19 17:26 30 mg STAT ONE Administration Ketorolac Tromethamine Confirm 05/27/19 17:39 Toradol 30 Mg Injection Administered 05/27/19 17:40 Dose 30 mg .ROUTE .STK-MED ONE Ondansetron HCl 4 mg 05/27/19 17:25 05/27/19 18:11 Zofran 4 Mg/2 Ml Vial IV 05/27/19 17:26 4 mg STAT ONE Administration Ondansetron HCl Confirm 05/27/19 17:39 Zofran 4 Mg/2 Ml Vial Administered 05/27/19 17:40 Dose 4 mg .ROUTE .STK-MED ONE Lab/Rad Data: Laboratory Result Diagrams 05/27/19 17:55 05/27/19 17:55 Laboratory Results 05/27/19 05/27/19 05/27/19 Range/Units 17:55 17:55 17:30 WBC 5.7 (4.0-10.5) K/mm3 RBC 2.93 L (4.1-5.4) M/mm3 Hgb 8.5 L (12.0-16.0) gm/dl Hct 27.5 L (35-47) % MCV 93.9 (78-100) fl MCH 29.0 (26-32) pg MCHC 30.9 L (32-36) g/dl RDW 15.9 H (11.5-14.0) % Plt Count 265 (150-450) K/mm3 MPV 10.0 (7.5-11.0) fl Gran % 74.2 H (36.0-66.0) % Eos # (Auto) 0.06 (0-0.5) Absolute Lymphs (auto) 0.68 L (1.0-4.6) Absolute Monos (auto) 0.70 (0.0-1.3) Lymphocytes % 11.9 L (24.0-44.0) % Monocytes % 12.3 H (0.0-12.0) % Eosinophils % 1.1 (0.00-5.0) % Basophils % 0.5 (0.0-0.4) % Absolute Granulocytes 4.24 (1.4-6.9) Basophils # 0.03 (0-0.4) Sodium 135 L (137-145) mmol/L Potassium 4.0 (3.5-5.1) mmol/L Chloride 98 (98-107) mmol/L Carbon Dioxide 28 (22-30) mmol/L Anion Gap 13.5 (5-15) MEQ/L BUN 37 H (7-17) mg/dL Creatinine 2.29 H (0.52-1.04) mg/dL Estimated GFR 23.6 ML/MIN Glucose 87 (74-106) mg/dL Lactic Acid (0.4-2.0) Calcium 9.4 (8.4-10.2) mg/dL Total Bilirubin 0.40 (0.2-1.3) mg/dL AST 35 (14-36) U/L ALT 8 (0-35) U/L Alkaline Phosphatase 64 (38-126) U/L Serum Total Protein 6.8 (6.3-8.2) g/dL Albumin 3.3 L (3.5-5.0) g/dL Amylase 33 (30-110) U/L Lipase 19 L (23-300) U/L C. difficile Screen NEGATIVE (NEGATIVE) C.difficile [id number] PRESUMPTIVE NEGATIVE (NEGATIVE) 05/27/19 Range/Units 17:25 WBC (4.0-10.5) K/mm3 RBC (4.1-5.4) M/mm3 Hgb (12.0-16.0) gm/dl Hct (35-47) % MCV (78-100) fl MCH (26-32) pg MCHC (32-36) g/dl RDW (11.5-14.0) % Plt Count (150-450) K/mm3 MPV (7.5-11.0) fl Gran % (36.0-66.0) % Eos # (Auto) (0-0.5) Absolute Lymphs (auto) (1.0-4.6) Absolute Monos (auto) (0.0-1.3) Lymphocytes % (24.0-44.0) % Monocytes % (0.0-12.0) % Eosinophils % (0.00-5.0) % Basophils % (0.0-0.4) % Absolute Granulocytes (1.4-6.9) Basophils # (0-0.4) Sodium (137-145) mmol/L Potassium (3.5-5.1) mmol/L Chloride (98-107) mmol/L Carbon Dioxide (22-30) mmol/L Anion Gap (5-15) MEQ/L BUN (7-17) mg/dL Creatinine (0.52-1.04) mg/dL Estimated GFR ML/MIN Glucose (74-106) mg/dL Lactic Acid 1.0 (0.4-2.0) Calcium (8.4-10.2) mg/dL Total Bilirubin (0.2-1.3) mg/dL AST (14-36) U/L ALT (0-35) U/L Alkaline Phosphatase (38-126) U/L Serum Total Protein (6.3-8.2) g/dL Albumin (3.5-5.0) g/dL Amylase (30-110) U/L Lipase (23-300) U/L C. difficile Screen (NEGATIVE) C.difficile [id number]-[id number] (NEGATIVE) - Progress Progress: improved - Departure Departure Disposition: Home Clinical Impression: Dehydration Condition: Fair Critical Care Time: No Referrals: GUILLERMO MENDOZA [Primary Care Provider] - Instructions: Dehydration, Adult (DC) Prescriptions: Cephalexin Mh 500 mg [Keflex 500 mg] 500 mg PO TID #21 capsule
[2019-05-27] MEDS ORDERED: Zofran 4 MG/2 ML VIAL ONE (17:39)
[2019-05-27] MEDS ORDERED: Sodium Chloride 0.9% 1000 ML 2,000 ML ONE (17:39)
[2019-05-27] MEDS ORDERED: TORAdol 30 mg Injection ONE (17:39)
[2019-05-27 18:18] LABS: Absolute Neutrophil Ct (ANC) 4.24 (1.4-6.9); BASOPHIL % 0.5 % (0.0-0.4); Basophil (Absolute #) 0.03 (0-0.4); Eosinophil % 1.1 % (0.00-5.0); Eosinophil (Absolute #) 0.06 (0-0.5); Hematocrit 27.5 % (35-47); Hemoglobin 8.5 gm/dl (12.0-16.0); Lymphocyte (Absolute #) 0.68 (1.0-4.6); Lymphocytes % 11.9 % (24.0-44.0); Mean Cell Volume 93.9 fl (78-100); Mean Corpuscular Hgb Concent. 30.9 g/dl (32-36); Monocytes % 12.3 % (0.0-12.0); Neutrophil % 74.2 % (36.0-66.0); Platelet Count 265 K/mm3 (150-450); Red Blood Count 2.93 M/mm3 (4.1-5.4); Red Cell Distribution Width 15.9 % (11.5-14.0); White Blood Count 5.7 K/mm3 (4.0-10.5)
[2019-05-27 18:32] LABS: ALBUMIN 3.3 g/dL (3.5-5.0); ANION GAP 13.5 MEQ/L (5-15); BILIRUBIN,TOTAL 0.4 mg/dL (0.2-1.3); Calcium 9.4 mg/dL (8.4-10.2); Creatinine 1 2.29 mg/dL (0.52-1.04); Total Protein 6.8 g/dL (6.3-8.2)
[2019-05-27 18:39] LABS: 027 TOX PROD PRESUMPTIVE NEGATIVE (NEGATIVE); TOXIGENIC C. DIFF ORG NEGATIVE (NEGATIVE)
[2019-05-27 19:52] LABS: Appearance SLIGHTLY CLOUDY (CLEAR); Bacteria RARE /HPF (NEGATIVE); Bilirubin NEGATIVE (NEGATIVE); Blood NEGATIVE Ery/ul (0-5); Epithelial Cells MODERATE /HPF (FEW); Glucose NEGATIVE (NEGATIVE); Ketones TRACE (NEGATIVE); Leukocyte Esterase NEGATIVE (NEGATIVE); Mucus SLIGHT /HPF (NEGATIVE); Nitrite NEGATIVE (NEGATIVE); Protein,Urine Dip 30 (Negative); RBC 0-2 /HPF (0-2); Specific Gravity 1.009 (1.005-1.025); Urobilinogen NEGATIVE mg/dL (0-1)
[2019-05-27 20:43] VITALS: BP 116/73; PULSE 85; O2SAT 92
--- NOTE | 2019-05-28 09:00 | XRAY ---
Indication: Pain and diarrhea. Comparison: January 27, 2018. Portable chest demonstrates new left Port-A-Cath. No focal infiltrate, consolidation, or large effusion. Stable incidental calcified granulomas. Heart is not enlarged. Bony thorax intact. Impression: Nonacute portable chest with chronic features.
--- NOTE | 2019-05-28 09:03 | XRAY ---
Indication: Abdominal pain and diarrhea. History uterine/ovarian cancer. Multiple contiguous axial images obtained through the abdomen and pelvis without contrast as ordered. Comparison: December 20, 2018. Lung bases demonstrates new tiny right effusion with minimal dependent atelectasis. Stable right lower lobe calcified granulomas. Heart is not enlarged with stable subcentimeter pericardial nodes. Stable small hiatal hernia. Noncontrasted stomach and bowel loops appear nonobstructed. Stable left adnexal/ovary noncalcified soft tissue mass presumed known primary cancer. There is moderate worsening diffuse omental caking throughout the abdomen/pelvis with increasing small free fluid again favoring metastasis. Grossly stable matted retroperitoneal metastatic lymphadenopathy. No walled off fluid collection or free air. Left kidney is now edematous with new mild hydronephrosis but no distal ureteral calculus or perinephric fluid. Proximal left ureter is also prominent up to 7 mm. Lack of IV contrast precludes further characterization by I suspect there is distal partial obstructive uropathy due to worsening metastasis. Stable bilateral renal cortical scarring with punctate calcification and right lower renal cyst. Stable cholecystectomy clips. Left lobe of the liver demonstrates stable indeterminant cluster of calcifications. Remaining liver, pancreas, spleen, adrenal glands, uterus, urinary bladder, and aorta appear unremarkable for noncontrast exam. Osseous structures intact again with mild degenerative changes and tiny Schmorl nodes. No suspicious bony lesions. Impression: 1. Worsening omental caking and small free fluid with grossly stable retroperitoneal lymphadenopathy and stable tiny pericardial nodes all favoring metastasis. 2. New hydronephrotic/edematous left kidney probably due to partial distal obstructive uropathy secondary to worsening metastasis. 3. New tiny right pleural effusion. 4. Stable left adnexa/ovary noncalcified mass presumed known primary cancer. 5. Stable indeterminant hepatic calcifications, bilateral renal cortical scarring with calcifications, right renal cyst, and small hiatal hernia.
[2019-05-29 10:07] LABS: Source: Feces
[2019-05-29 14:06] LABS: Giardia Antigen EIA Negative (Negative)
== END 2019-05-27 20:52 | disposition home or self-care (01) ==
LOC: ED 17:10
DX: E86.0 Dehydration (principal)
CPT/HCPCS: 36415; 71045; 74176; 80053; 81001; 82150; 83605; 83690; 85025; 87040; 87045; 87046; 87086; 87177; 87209; 87335; 87493; 96360; 96361; 96374; 96375; 99284; J1642; J1885; J2405